=== PATIENT | female | born 1990 | race Caucasian/White ===

== ENCOUNTER 2020-11-23 08:31 | Inpatient (IN) ==
[2020-11-23] MEDS ORDERED: 0.9 % Sodium Chloride 1,000 ML IV ONE ×2 (08:58→09:30)
[2020-11-23] MEDS ORDERED: Ondansetron 4 MG/2 ML VIAL IVP ONE (08:58)
[2020-11-23 09:29] LABS: Basophils # 0.1 K/mcL (0.0-0.2); Basophils % 0.8 %; Eosinophils # 0.1 K/mcL (0.0-0.6); Eosinophils % 0.7 %; Hematocrit 44.2 % (35.3-44.9); Hemoglobin 14.1 g/dL (11.5-15.4); Immature Granulocytes % 4.7 % (0-4); Lymphocytes # 0.9 K/mcL (0.6-4.6); Lymphocytes % 7.1 %; Mean Corpuscular HGB Conc 31.9 g/dL (31.6-35.5); Mean Corpuscular Hemoglobin 32.2 pg (28.0-33.3); Mean Corpuscular Volume 100.9 fL (83.0-100.0); Mean Platelet Volume 9.4 fL (9.4-12.4); Monocytes # 0.4 K/mcL (0.0-1.3); Monocytes % 3.7 %; Neutrophils # 9.9 K/mcL (1.6-8.9); Nucleated Red Blood Cells 0.2 /100 WBC (0); Platelet Count 392 K/mcL (140-400); Red Blood Count 4.38 M/mcL (3.82-4.97); Red Cell Distribution Width 12.3 % (11.5-14.5); White Blood Count 11.9 K/mcL (4.3-11.1)
[2020-11-23 09:31] LABS: VBG HCO3 10 mEq/L (21-27); VBG PCO2 27 mmHg (41-51); VBG PH 7.18 pH Units (7.32-7.42); VBG PO2 77 mmHg (25-50)
[2020-11-23 10:19] LABS: Alanine Aminotransferase 22 Units/L (7-52); Albumin 4.2 g/dL (3.5-5.7); Alkaline Phosphatase 41 Units/L (34-104); Aspartate Amino Transferase 23 Units/L (13-39); BUN/Creatinine Ratio 23 (6-26); Bilirubin,Total 0.9 mg/dL (0.3-1.0); Blood Urea Nitrogen 56 mg/dL (6-20); Calcium 10.6 mg/dL (8.6-10.3); Carbon Dioxide 8 mEq/L (23-29); Chloride 84 mEq/L (98-107); Globulin 4.2 g/dL (2.4-3.5); Glucose 1001 mg/dL (70-105); Osmolality,Calculated 324 (280-300); Potassium 6.5 mEq/L (3.5-5.1); Sodium 124 mEq/L (136-145); Total Protein 8.4 g/dL (6.4-8.9); Troponin I < 0.03 ng/mL (< 0.04); eGFR For African Americans 28 (> 60); eGFR For Non-African Americans 24 (> 60)
[2020-11-23] MEDS: Insulin Human Regular 100 UNIT in 0.9 % Sodium Chloride 100 ML IVC SCH ×2 (11:24→20:00)
[2020-11-23 11:34] LABS: Bilirubin,Urine Negative (Negative); Blood,Urine Trace (Negative); Clarity,Urine Clear (Clear); Color,Urine Colorless (Yellow); Glucose,Urine (UA) >=1000 mg/dL (Normal); Ketones,Urine 60 mg/dL (Negative); Leukocyte Esterase,Urine Negative (Negative); Mucus,Urine Few per lpf (None-Few); Nitrite,Urine Negative (Negative); Protein,Urine Negative (Neg-Trace); RBC,Urine 0-3 per hpf (0-3); Squamous Epithelial Cell,Urine Few per hpf (None-Few); Urobilinogen,Urine Normal (Normal); WBC,Urine 0-3 per hpf (0-3)
[2020-11-23] MEDS ORDERED: Ondansetron 4 MG/2 ML VIAL IVP PRN (13:26)
[2020-11-23] MEDS ORDERED: Insulin Regular, Human 100 UNIT/ML IV PRN ×2 (13:29→17:00)
[2020-11-23] MEDS ORDERED: *HR* Dextrose 50 % in Water (Vial) 50 ML VIAL IVP PRN ×2 (13:29→17:00)
[2020-11-23] MEDS ORDERED: D5% in 0.45% NACL w KCl 20 MEQ/1,000 ML MLS IVC PRN (13:29)
[2020-11-23] MEDS ORDERED: 0.45 % Sodium Chloride w/KCl 20 MEQ/1,000 ML MLS IVC SCH (13:30)
[2020-11-23] MEDS ORDERED: D5% in 0.45% NACL 1,000 ML IVC PRN (14:02)
[2020-11-23 14:42] LABS: VBG HCO3 8 mEq/L (21-27); VBG PCO2 24 mmHg (41-51); VBG PH 7.14 pH Units (7.32-7.42); VBG PO2 89 mmHg (25-50)
[2020-11-23 14:52] LABS: Calcium 9.8 mg/dL (8.6-10.3); Magnesium 2.4 mg/dL (1.6-2.6); Potassium 5.6 mEq/L (3.5-5.1)
[2020-11-23] MEDS ORDERED: 0.9 % Sodium Chloride 1,000 ML IVC ONE (15:29)
[2020-11-23] MEDS ORDERED: cefTRIAXone 1,000 MG in Water for inj. (sterile) 10 ML IVP SCH (16:00)
[2020-11-23 17:36] LABS: VBG HCO3 10 mEq/L (21-27); VBG PCO2 20 mmHg (41-51); VBG PH 7.31 pH Units (7.32-7.42); VBG PO2 131 mmHg (25-50)
[2020-11-23 18:13] LABS: Calcium 9.5 mg/dL (8.6-10.3); Potassium 5.7 mEq/L (3.5-5.1)
[2020-11-23] MEDS: 0.9 % Sodium Chloride 1,000 ML IVC SCH ×5 (18:20→23:15)
[2020-11-23] MEDS: amLODIPine 5 MG TABLET PO SCH (20:31)
[2020-11-23] MEDS: carvediloL 25 MG TABLET PO SCH (20:31)
[2020-11-23] MEDS: *HR* Heparin 5,000 UNIT/ML VIAL SQ SCH (20:32)
[2020-11-23] MEDS ORDERED: 0.9 % Sodium Chloride 1,000 ML IVC SCH (21:45)
[2020-11-23 22:10] LABS: VBG HCO3 16 mEq/L (21-27); VBG PCO2 26 mmHg (41-51); VBG PO2 157 mmHg (25-50)
[2020-11-23 22:27] LABS: Calcium 8.8 mg/dL (8.6-10.3); Potassium 4.3 mEq/L (3.5-5.1)
[2020-11-23] MEDS: 0.45 % Sodium Chloride w/KCl 20 MEQ/1,000 ML MLS IVC SCH (23:09)
[2020-11-24] MEDS: D5% in 0.45% NACL w KCl 20 MEQ/1,000 ML MLS IVC SCH ×3 (00:42→08:14)
[2020-11-24] MEDS: Insulin Human Regular 100 UNIT in 0.9 % Sodium Chloride 100 ML IVC SCH ×3 (01:00→07:00)
[2020-11-24] MEDS: 0.9 % Sodium Chloride 1,000 ML IVC SCH ×3 (01:28→05:16)
[2020-11-24 05:45] LABS: VBG HCO3 19 mEq/L (21-27); VBG PCO2 34 mmHg (41-51); VBG PH 7.36 pH Units (7.32-7.42); VBG PO2 82 mmHg (25-50)
[2020-11-24] MEDS: 0.45 % Sodium Chloride w/KCl 20 MEQ/1,000 ML MLS IVC SCH ×2 (06:02→08:08)
[2020-11-24] MEDS: Acetaminophen 325 MG TABLET PO PRN (06:02)
[2020-11-24] MEDS: *HR* Heparin 5,000 UNIT/ML VIAL SQ SCH ×2 (06:03→12:29)
[2020-11-24 06:13] LABS: Magnesium 1.6 mg/dL (1.6-2.6); Phosphorous < 1.0 mg/dL (2.7-4.5)
[2020-11-24 06:37] LABS: BUN/Creatinine Ratio 20 (6-26); Blood Urea Nitrogen 25 mg/dL (6-20); Carbon Dioxide 18 mEq/L (23-29); Chloride 112 mEq/L (98-107); Glucose 99 mg/dL (70-105); Osmolality,Calculated 294 (280-300); Potassium 3.8 mEq/L (3.5-5.1); Sodium 140 mEq/L (136-145); eGFR For African Americans > 60 (> 60); eGFR For Non-African Americans 51 (> 60)
[2020-11-24] MEDS: carvediloL 25 MG TABLET PO SCH ×2 (07:47→16:06)
[2020-11-24] MEDS: Aspirin Enteric Coated 81 MG Tablet PO SCH (07:47)
[2020-11-24] MEDS: predniSONE 10 MG TABLET PO SCH (07:47)
[2020-11-24] MEDS: amLODIPine 5 MG TABLET PO SCH (07:47)
[2020-11-24] MEDS ORDERED: Potassium Phosphate 44 MEQ in 0.9 % Sodium Chloride 250 ML IVPB ONE ×2 (07:52→09:42)
[2020-11-24] MEDS ORDERED: Insulin DETEMIR 100 UNIT/ML X5UNITS SUBQ SCH ×2 (09:00→21:00)
[2020-11-24 09:03] LABS: Hemoglobin 11.6 g/dL (11.5-15.4); Mean Corpuscular HGB Conc 34.1 g/dL (31.6-35.5); Mean Corpuscular Hemoglobin 31.9 pg (28.0-33.3); Mean Corpuscular Volume 93.4 fL (83.0-100.0); Mean Platelet Volume 8.5 fL (9.4-12.4); Platelet Count 272 K/mcL (140-400); Red Blood Count 3.64 M/mcL (3.82-4.97); Red Cell Distribution Width 12.1 % (11.5-14.5); White Blood Count 11.3 K/mcL (4.3-11.1)
[2020-11-24 09:08] LABS: VBG HCO3 20 mEq/L (21-27); VBG PCO2 40 mmHg (41-51); VBG PH 7.31 pH Units (7.32-7.42); VBG PO2 98 mmHg (25-50)
[2020-11-24 09:22] LABS: BUN/Creatinine Ratio 17 (6-26); Blood Urea Nitrogen 20 mg/dL (6-20); Calcium 8.9 mg/dL (8.6-10.3); Carbon Dioxide 18 mEq/L (23-29); Chloride 110 mEq/L (98-107); Glucose 99 mg/dL (70-105); Osmolality,Calculated 285 (280-300); Potassium 4.4 mEq/L (3.5-5.1); Sodium 136 mEq/L (136-145); eGFR For African Americans > 60 (> 60); eGFR For Non-African Americans 55 (> 60)
[2020-11-24] MEDS ORDERED: Dextrose Gel 15 GM/37.5 ML TUBE PO PRN ×2 (12:04)
[2020-11-24] MEDS ORDERED: Insulin DETEMIR 100 UNIT/ML X5UNITS SUBQ ONE (12:04)
[2020-11-24] MEDS ORDERED: D5% in Water 1,000 ML IVC PRN (12:04)
[2020-11-24] MEDS: Insulin LISPRO 300 UNITS/3 ML VIAL SUBQ SCH ×2 (12:29→16:07)
[2020-11-24 13:02] LABS: VBG HCO3 17 mEq/L (21-27); VBG PCO2 29 mmHg (41-51); VBG PH 7.37 pH Units (7.32-7.42); VBG PO2 168 mmHg (25-50)
[2020-11-24 13:20] LABS: BUN/Creatinine Ratio 17 (6-26); Blood Urea Nitrogen 19 mg/dL (6-20); Calcium 9.6 mg/dL (8.6-10.3); Carbon Dioxide 15 mEq/L (23-29); Chloride 103 mEq/L (98-107); Glucose 390 mg/dL (70-105); Osmolality,Calculated 292 (280-300); Potassium 5.4 mEq/L (3.5-5.1); Sodium 132 mEq/L (136-145); eGFR For African Americans > 60 (> 60); eGFR For Non-African Americans 55 (> 60)
[2020-11-24 17:22] LABS: BUN/Creatinine Ratio 15 (6-26); Blood Urea Nitrogen 18 mg/dL (6-20); Calcium 9.6 mg/dL (8.6-10.3); Carbon Dioxide 17 mEq/L (23-29); Chloride 102 mEq/L (98-107); Glucose 356 mg/dL (70-105); Osmolality,Calculated 288 (280-300); Potassium 5.2 mEq/L (3.5-5.1); Sodium 131 mEq/L (136-145); eGFR For African Americans > 60 (> 60); eGFR For Non-African Americans 53 (> 60)
[2020-11-24 17:57] LABS: Phosphorous 2.4 mg/dL (2.7-4.5)
[2020-11-24] MEDS ORDERED: Insulin LISPRO 300 UNITS/3 ML VIAL SUBQ SCH (21:00)
[2020-11-25] MEDS: *HR* Heparin 5,000 UNIT/ML VIAL SQ SCH ×2 (01:18→05:18)
[2020-11-25] MEDS: Acetaminophen 325 MG TABLET PO PRN (01:43)
[2020-11-25 06:34] LABS: Basophils # 0.1 K/mcL (0.0-0.2); Basophils % 0.5 %; Eosinophils # 0.1 K/mcL (0.0-0.6); Eosinophils % 0.9 %; Hematocrit 39.2 % (35.3-44.9); Hemoglobin 13.3 g/dL (11.5-15.4); Immature Granulocytes % 1.7 % (0-4); Lymphocytes # 0.9 K/mcL (0.6-4.6); Lymphocytes % 10.1 %; Mean Corpuscular HGB Conc 33.9 g/dL (31.6-35.5); Mean Corpuscular Hemoglobin 31.7 pg (28.0-33.3); Mean Corpuscular Volume 93.6 fL (83.0-100.0); Mean Platelet Volume 8.8 fL (9.4-12.4); Monocytes # 0.8 K/mcL (0.0-1.3); Monocytes % 8.3 %; Neutrophils # 7.3 K/mcL (1.6-8.9); Platelet Count 305 K/mcL (140-400); Red Blood Count 4.19 M/mcL (3.82-4.97); Red Cell Distribution Width 12.4 % (11.5-14.5); Segmented Neutrophils % 78.5 %; White Blood Count 9.2 K/mcL (4.3-11.1)
[2020-11-25 06:55] LABS: Magnesium 1.6 mg/dL (1.6-2.6); Phosphorous 3.1 mg/dL (2.7-4.5)
[2020-11-25 06:58] LABS: Alanine Aminotransferase 31 Units/L (7-52); Albumin 3.7 g/dL (3.5-5.7); Alkaline Phosphatase 32 Units/L (34-104); Aspartate Amino Transferase 55 Units/L (13-39); BUN/Creatinine Ratio 15 (6-26); Bilirubin,Total 0.6 mg/dL (0.3-1.0); Blood Urea Nitrogen 14 mg/dL (6-20); Calcium 10.1 mg/dL (8.6-10.3); Carbon Dioxide 19 mEq/L (23-29); Chloride 104 mEq/L (98-107); Globulin 3.6 g/dL (2.4-3.5); Glucose 233 mg/dL (70-105); Osmolality,Calculated 290 (280-300); Potassium 3.9 mEq/L (3.5-5.1); Sodium 136 mEq/L (136-145); Total Protein 7.3 g/dL (6.4-8.9); eGFR For African Americans > 60 (> 60); eGFR For Non-African Americans > 60 (> 60)
[2020-11-25] MEDS: carvediloL 25 MG TABLET PO SCH (08:10)
[2020-11-25] MEDS: predniSONE 10 MG TABLET PO SCH (08:12)
[2020-11-25] MEDS: Aspirin Enteric Coated 81 MG Tablet PO SCH (08:12)
[2020-11-25] MEDS: Insulin LISPRO 300 UNITS/3 ML VIAL SUBQ SCH ×2 (08:13→12:13)
[2020-11-25] MEDS ORDERED: Insulin DETEMIR 100 UNIT/ML X5UNITS SUBQ SCH (09:00)
[2020-11-25] MEDS ORDERED: Ascorbic Acid 500 MG TABLET PO SCH (09:00)
[2020-11-25] MEDS ORDERED: Folic Acid 1 MG TABLET PO SCH (09:00)
[2020-11-25] MEDS ORDERED: Mycophenolate Sodium (DR) 180 MG TABLET.DR PO SCH (09:00)
[2020-11-25] MEDS ORDERED: amLODIPine 5 MG TABLET PO SCH (09:00)
[2020-11-25] MEDS ORDERED: CycloSPORINE, Mod (Neoral) 25 MG CAPSULE PO SCH ×2 (09:00→21:00)
[2020-11-25] MEDS ORDERED: Cholecalciferol (D-3) 1,000 UNIT (25MCG) TABLET PO SCH (09:00)
[2020-11-25] MEDS ORDERED: CycloSPORINE (SandIMMUNE) 100 MG CAPSULE PO SCH (09:00)
[2020-11-25 11:11] VITALS: BP 163/108
[2020-11-25] MEDS ORDERED: cloNIDine HCL 0.1 MG TABLET PO SCH (12:00)
== END 2020-11-25 13:01 | disposition home or self-care (01) | DRG 871 ==
LOC: 2NENU 08:31 → EMEROOARM 08:31 → 2NENU 15:46 → SUATTDRO 16:51
PROVIDERS: ADMIT Internal Medicine; ATTEND Family Medicine

== ENCOUNTER 2021-01-15 09:05 | Observation (INO) ==
[2021-01-15] MEDS ORDERED: Isovue-370 500 ML BOTTLE IVP ONE (09:43)
[2021-01-15] MEDS ORDERED: Ondansetron 4 MG/2 ML VIAL IVP ONE (10:10)
[2021-01-15] MEDS ORDERED: *HR* HYDROmorphone (PF) 1 MG/ML SYRINGE IVP STA (10:11)
[2021-01-15] MEDS ORDERED: Lidocaine 1% 20 ML MDV INFILT ONE (12:03)
[2021-01-15 14:22] LABS: Hemoglobin 12.7 g/dL (11.5-15.4); Mean Corpuscular HGB Conc 33.4 g/dL (31.6-35.5); Mean Corpuscular Hemoglobin 32.6 pg (28.0-33.3); Mean Corpuscular Volume 97.4 fL (83.0-100.0); Mean Platelet Volume 9.1 fL (9.4-12.4); Platelet Count 231 K/mcL (140-400); Red Cell Distribution Width 12.6 % (11.5-14.5); White Blood Count 9.7 K/mcL (4.3-11.1)
[2021-01-15] MEDS ORDERED: Ondansetron 4 MG/2 ML VIAL IVP PRN ×3 (14:23→21:13)
[2021-01-15] MEDS ORDERED: Acetaminophen 325 MG TABLET PO PRN ×2 (14:23→21:13)
[2021-01-15] MEDS ORDERED: Naloxone 0.4 MG/ML INJ IVP PRN ×2 (14:23→21:13)
[2021-01-15] MEDS ORDERED: *HR* Dextrose 50 % in Water (Vial) 50 ML VIAL IVP PRN ×2 (14:26→21:13)
[2021-01-15] MEDS ORDERED: Dextrose Gel 15 GM/37.5 ML TUBE PO PRN ×4 (14:26→21:13)
[2021-01-15] MEDS ORDERED: D5% in Water 1,000 ML IVC PRN ×2 (14:26→21:13)
[2021-01-15] MEDS ORDERED: 0.9 % Sodium Chloride 1,000 ML IVC SCH (14:30)
[2021-01-15 14:37] LABS: Calcium 9.9 mg/dL (8.6-10.3); Magnesium 1.5 mg/dL (1.6-2.6)
[2021-01-15] MEDS ORDERED: 0.9 % Sodium Chloride 1,000 ML IVC ONE (14:44)
[2021-01-15] MEDS ORDERED: Lidocaine/EPI 1:100k 1% 50 ML VIAL ONE (16:57)
[2021-01-15] MEDS ORDERED: Ondansetron 4 MG/2 ML VIAL ONE (17:29)
[2021-01-15] MEDS ORDERED: *HR* Propofol 200 MG/20 ML VIAL IVP ONE (17:29)
[2021-01-15] MEDS ORDERED: *HR* Succinylcholine 200 MG/10 ML VIAL IVP ONE (17:29)
[2021-01-15] MEDS ORDERED: *HR* FentaNYL (PF) 100 MCG/2 ML VIAL ONE (17:29)
[2021-01-15] MEDS ORDERED: Lidocaine -MPF 2% 2 ML VIAL ONE (17:29)
[2021-01-15] MEDS ORDERED: Insulin LISPRO 300 UNITS/3 ML VIAL SUBQ SCH (18:00)
[2021-01-15] MEDS ORDERED: Clindamycin 900 MG/50 ML 900 MG/50 ML IV.SOLN IVPB ONE (18:14)
[2021-01-15] MEDS ORDERED: *HR* HYDROMORPHONE 2 MG/ML VIAL ONE (18:29)
[2021-01-15] MEDS ORDERED: *HR* HYDROcodone/Acet 5/325 mg TABLET PO PRN (20:28)
[2021-01-15] MEDS ORDERED: Promethazine 6.25 MG in Water for inj. (sterile) 20 ML IVPB PRN (20:28)
[2021-01-15] MEDS ORDERED: *HR* Labetalol 20 MG/4 ML SYRINGE IVP PRN (20:28)
[2021-01-15] MEDS ORDERED: *HR* HYDROmorphone PF 0.5 MG/0.5 ML SYRINGE IVP PRN (20:28)
[2021-01-16] MEDS: Clindamycin 900 MG/50 ML 900 MG/50 ML IV.SOLN IVPB SCH ×2 (00:58→09:58)
[2021-01-16] MEDS: Insulin LISPRO 300 UNITS/3 ML VIAL SUBQ SCH ×2 (04:27→12:11)
[2021-01-16 06:12] LABS: Hemoglobin 13.3 g/dL (11.5-15.4); Mean Corpuscular HGB Conc 32.4 g/dL (31.6-35.5); Mean Corpuscular Hemoglobin 31.9 pg (28.0-33.3); Mean Corpuscular Volume 98.3 fL (83.0-100.0); Mean Platelet Volume 8.9 fL (9.4-12.4); Platelet Count 278 K/mcL (140-400); Red Blood Count 4.17 M/mcL (3.82-4.97); Red Cell Distribution Width 12.9 % (11.5-14.5); White Blood Count 11.3 K/mcL (4.3-11.1)
[2021-01-16 06:32] LABS: BUN/Creatinine Ratio 23 (6-26); Blood Urea Nitrogen 25 mg/dL (6-20); Carbon Dioxide 22 mEq/L (23-29); Chloride 102 mEq/L (98-107); Glucose 235 mg/dL (70-105); Osmolality,Calculated 288 (280-300); Potassium 4.5 mEq/L (3.5-5.1); Sodium 133 mEq/L (136-145); eGFR For African Americans > 60 (> 60); eGFR For Non-African Americans 58 (> 60)
[2021-01-16] MEDS: 0.9 % Sodium Chloride 1,000 ML IVC SCH ×2 (06:56→11:04)
[2021-01-16] MEDS: cloNIDine HCL 0.1 MG TABLET PO SCH ×2 (09:58→10:05)
[2021-01-16] MEDS ORDERED: *HR* HYDROmorphone PF 0.5 MG/0.5 ML SYRINGE IVP ONE (10:15)
[2021-01-16] MEDS: Mycophenolate Sodium (DR) 180 MG TABLET.DR PO SCH ×2 (10:58→16:47)
[2021-01-16 14:46] VITALS: BP 167/82
[2021-01-16] MEDS ORDERED: carvediloL 25 MG TABLET PO SCH (17:00)
== END 2021-01-16 17:55 | disposition home or self-care (01) ==
LOC: 3NENU 09:05 → EMEROOARM 09:05 → SUATTDRO 15:29 → 3NENU 17:05
PROVIDERS: ADMIT Internal Medicine; ATTEND Student in an Organized Health Care Education/Training Program